=== PATIENT | male | born 1995 | race African-American/Black ===

== ENCOUNTER 2020-05-13 01:51 | Emergency (ER) | payer MEDICAID ==
[~2020-05-13] VITALS: Ht 180.3 cm; Wt 74.8 kg
[2020-05-13] MEDS ORDERED: KETOROLAC TROMETHAMINE INJ 30 MG/ML VIAL IV ONE (02:00)
[2020-05-13] MEDS ORDERED: KETOROLAC TROMETHAMINE 15 MG/ML VIAL ONE (02:07)
--- NOTE | 2020-05-13 02:19 | NUR ---
PATIENT CAME TO ER BED 11 C/O ABDOMINAL PAIN FOR 2xDAYS. PATIENT ADMITS TO HAVING NAUSEA, VOMITING, AND DIARRHEA. AAOX4. NO SOB. BREATHING EVENLY AND UNLABORED ON ROOM AIR. CONNECTED TO THE MONITOR.
--- NOTE | 2020-05-13 03:12 | NUR ---
BLOOD COLLECTED AND SENT TO THE LAB.
--- NOTE | 2020-05-13 03:17 | NUR ---
PATIENT TAKEN TO CT
[2020-05-13 03:37] LABS: CALCIUM, SERUM 9.2 mg/dL (8.5-10.1); CREATININE 0.9 mg/dL (0.6-1.3)
[2020-05-13 03:43] LABS: BILIRUBIN,DIRECT 0.1 mg/dL (0.0-0.2); BILIRUBIN,TOTAL 0.2 mg/dL (0.2-1.0); TOTAL PROTEIN, SERUM 8.6 g/dL (6.4-8.2)
[2020-05-13 04:17] LABS: BASOPHILS % (AUTO) 0.1 % (0.0-2.0); EOSINOPHILS % (AUTO) 3.2 % (0.0-6.0)
[2020-05-13 04:20] LABS: HEMATOCRIT 50 % (39-51); HEMOGLOBIN 16.2 g/dL (13.5-17.5); LYMPHOCYTES # (AUTO) 1.9 /CMM (0.8-4.8); LYMPHOCYTES % (AUTO) 27.8 % (20.0-44.0); MEAN CORPUSCULAR HGB CONC 33 g/dl (31.0-36.0); MEAN CORPUSCULAR VOLUME 80 fL (80-96); MONOCYTES # (AUTO) 0.8 /CMM (0.1-1.30); MONOCYTES % (AUTO) 11.5 % (2.0-12.0); NEUTROPHILS # (AUTO) 3.9 /CMM (1.8-8.9); NEUTROPHILS % (AUTO) 57.4 % (43.0-81.0); PLATELET COUNT (AUTO) 412 /CMM (150-450); RED BLOOD CELL COUNT(AUTO) 6.19 MIL/uL (4.5-6.0); WHITE BLOOD COUNT (AUTO) 6.7 K/uL (4.3-11.0)
--- NOTE | 2020-05-13 04:44 | NUR ---
PATIENT STATES THAT HE IS NOT HOMELESS. PATIENT IS AMBULATORY WITH A STEADY GAIT.
--- NOTE | 2020-05-13 04:45 | NUR ---
IV removed. Catheter intact and site benign. Pressure and 4x4 applied to site. No bleeding noted.
--- NOTE | 2020-05-13 04:45 | NUR ---
Patient discharged to home in stable condition. Written and verbal after care instructions given. Patient verbalizes understanding of instruction.
[2020-05-13 04:48] VITALS: BP 121/77
[2020-05-14 08:22] LABS: BILIRUBIN,URINE SMALL (NEGATIVE); BLOOD, URINE NEGATIVE Ery/uL (NEGATIVE); COLOR,URINE YELLOW (YELLOW); LEUKOCYTE ESTERASE ,URINE NEGATIVE (NEGATIVE); NITRITE, URINE NEGATIVE (NEGATIVE); PROTEIN,URINE NEGATIVE (NEGATIVE); UGLUCOSE NEGATIVE (NEGATIVE); UROBILINOGEN,URINE 0.2 EU/dL (0.2)
[2020-05-14 08:36] LABS: BACTERIA,URINE Rare /HPF (None Seen); RBC,URINE 0-2 /HPF (0-2); SQUAMOUS EPITHELIAL CELL,UR Rare /HPF (None Seen); WBC,URINE 0-2 /HPF (0-3)
== END 2020-05-13 04:49 | disposition home or self-care (01) ==
LOC: ER 01:54
DX: K52.9 Noninfective gastroenteritis and colitis, unspecified (principal)
CPT/HCPCS: 36415; 74176; 80048; 80076; 81001; 83690; 85025; 96374; 99284; J1885

== ENCOUNTER 2020-05-14 06:10 | Emergency (ER) | payer MEDICAID ==
[~2020-05-14] VITALS: Ht 175.3 cm; Wt 74.8 kg
[2020-05-14 06:13] VITALS: BP 124/68
[2020-05-14] MEDS ORDERED: CIPROFLOXACIN HCL 250 MG TABLET PO ONE (06:30)
[2020-05-14] MEDS ORDERED: ONDANSETRON 4 MG TAB.RAPDIS SL ONE (06:30)
[2020-05-14] MEDS ORDERED: METRONIDAZOLE 500 MG TABLET PO ONE (06:30)
[2020-05-14] MEDS ORDERED: ONDANSETRON 4 MG TAB.RAPDIS ONE (06:34)
[2020-05-14] MEDS ORDERED: CIPROFLOXACIN HCL 500 MG TABLET ONE (06:34)
[2020-05-14] MEDS ORDERED: METRONIDAZOLE 500 MG TABLET ONE (06:35)
--- NOTE | 2020-05-14 06:40 | NUR ---
Patient discharged to home in stable condition. Written and verbal after care instructions given. Patient verbalizes understanding of instruction.
== END 2020-05-14 06:41 | disposition home or self-care (01) ==
LOC: ER 06:12
DX: R11.2 Nausea with vomiting, unspecified (principal); R19.7 Diarrhea, unspecified
CPT/HCPCS: 99284; Q0162